=== PATIENT | male | born 1980 | race Caucasian/White ===

== ENCOUNTER 2018-03-28 08:13 | Emergency (ER) | payer MEDICAID ==
[~2018-03-28] VITALS: Ht 177.8 cm; Wt 109.1 kg
[2018-03-28] MEDS ORDERED: PredniSONE 20 MG TABLET PO ONE (09:15)
[2018-03-28 09:56] VITALS: BP 121/80
== END 2018-03-28 09:58 | disposition home or self-care (01) ==
LOC: EMS 08:16
DX: L24.9 Irritant contact dermatitis, unspecified cause (principal)
CPT/HCPCS: 99283; J7512